=== PATIENT | female | born 2000 | race Caucasian/White ===

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

== ENCOUNTER 2021-08-27 13:40 | Emergency (ER) | payer OTHER ==
[2021-08-27 16:18] LABS: HEMOGLOBIN 13.3 gm/dl (12.3-15.3); RED BLOOD COUNT 4.23 M/UL (4.00-5.10); WHITE BLOOD COUNT 8.7 K/UL (4.5-11.0)
[2021-08-27 16:43] LABS: BUN/CREATININE RATIO 12 (0-10)
== END 2021-08-27 18:30 | disposition home or self-care (01) ==
LOC: ER1 13:40
PROVIDERS: Emergency Medicine
DX: O99.891 Other specified diseases and conditions complicating pregnancy (principal); R10.9 Unspecified abdominal pain; Z3A.01 Less than 8 weeks gestation of pregnancy
CPT/HCPCS: 76801; 80053; 81001; 84702; 84703; 85025; 86900; 86901; 99284

== ENCOUNTER → 2021-08-28 | Outpatient (CLI) | payer OTHER | LOC: LAB 11:57 | DX: Z34.90 Encounter for supervision of normal pregnancy, unspecified, unspecified trimester (principal) | CPT/HCPCS: 36415; 84702 ==

== ENCOUNTER 2022-01-04 18:14 | Outpatient (CLI) | payer OTHER | END 2022-01-04 21:29 | disposition home or self-care (01) | LOC: GENOP 18:14 | DX: O36.8120 Decreased fetal movements, second trimester, not applicable or unspecified (principal); O99.891 Other specified diseases and conditions complicating pregnancy; R10.9 Unspecified abdominal pain; N89.8 Other specified noninflammatory disorders of vagina; O99.342 Other mental disorders complicating pregnancy, second trimester; F32.A Depression, unspecified; Z3A.23 23 weeks gestation of pregnancy | CPT/HCPCS: 81001; 83518; 96360; 96361; J7121 ==

== ENCOUNTER 2022-03-06 19:40 | Outpatient (CLI) | payer OTHER | END 2022-03-06 21:22 | disposition home or self-care (01) | LOC: GENOP 19:40 | DX: O99.891 Other specified diseases and conditions complicating pregnancy (principal); R10.9 Unspecified abdominal pain; Z3A.23 23 weeks gestation of pregnancy | CPT/HCPCS: 59025; 81001; 82731 ==

== ENCOUNTER → 2022-04-01 | Outpatient (CLI) | payer OTHER ==
[~2022-04-01] MED LIST: BENADRYL25 MG PO; PRENATAL VITAM1 EAC5 PO; URSODIOL300 MG PO
== END ==
LOC: KOH-I 03-17 08:30
DX: R10.11 Right upper quadrant pain (principal); K80.20 Calculus of gallbladder without cholecystitis without obstruction
CPT/HCPCS: 76705

== ENCOUNTER 2022-04-02 13:08 | Inpatient (IN) | payer OTHER ==
[~2022-04-02] VITALS: Ht 170.2 cm; Wt 84.8 kg
[2022-04-02 13:51] LABS: RED BLOOD COUNT 3.8 M/UL (4.00-5.10); WHITE BLOOD COUNT 9.2 K/UL (4.5-11.0)
[2022-04-02 14:28] LABS: BUN/CREATININE RATIO 13 (0-10)
[2022-04-02] MEDS ORDERED: URSODIOL300 MG PO (15:52)
[2022-04-02] MEDS ORDERED: PRENATAL VITAM1 EAC5 PO (15:53)
[2022-04-02] MEDS ORDERED: BENADRYL25 MG PO (15:54)
[2022-04-05 06:09] LABS: HEMOGLOBIN 11.8 gm/dl (12.3-15.3)
== END 2022-04-05 22:57 | disposition home or self-care (01) | DRG 805 ==
LOC: GENOP 13:08 → OB 13:34
PROVIDERS: ADMIT Obstetrics & Gynecology
PROC: 10E0XZZ Delivery of Products of Conception, External Approach (ICD-10-PCS; principal; 2022-04-04)
PROC: 10907ZC Drainage of Amniotic Fluid, Therapeutic from Products of Conception, Via Natural or Artificial Opening (ICD-10-PCS; 2022-04-04)
PROC: 3E033VJ Introduction of Other Hormone into Peripheral Vein, Percutaneous Approach (ICD-10-PCS; 2022-04-04)
PROC: 0HQ9XZZ Repair Perineum Skin, External Approach (ICD-10-PCS; 2022-04-04)
PROC: 4A1H7CZ Monitoring of Products of Conception, Cardiac Rate, Via Natural or Artificial Opening (ICD-10-PCS; 2022-04-04)
PROC: 10H073Z Insertion of Monitoring Electrode into Products of Conception, Via Natural or Artificial Opening (ICD-10-PCS; 2022-04-04)
PROC: 0UH97HZ Insertion of Contraceptive Device into Uterus, Via Natural or Artificial Opening (ICD-10-PCS; 2022-04-04)
PROC: 3E0234Z Introduction of Serum, Toxoid and Vaccine into Muscle, Percutaneous Approach (ICD-10-PCS; 2022-04-04)
DX: O26.62 Liver and biliary tract disorders in childbirth (principal); K83.1 Obstruction of bile duct; Z37.0 Single live birth; O99.02 Anemia complicating childbirth; O70.0 First degree perineal laceration during delivery; D64.9 Anemia, unspecified; O99.344 Other mental disorders complicating childbirth; O76 Abnormality in fetal heart rate and rhythm complicating labor and delivery; F32.A Depression, unspecified; O99.824 Streptococcus B carrier state complicating childbirth; Z3A.36 36 weeks gestation of pregnancy; Z83.3 Family history of diabetes mellitus; Z82.49 Family history of ischemic heart disease and other diseases of the circulatory system; Z83.2 Family history of diseases of the blood and blood-forming organs and certain disorders involving the immune mechanism; Z83.6 Family history of other diseases of the respiratory system; Z23 Encounter for immunization
CPT/HCPCS: 36415; 80053; 81001; 82239; 82570; 82800; 84156; 85014; 85018; 85025; 90471; 90715; J0595; J0702; J2405; J2590; J2795